=== PATIENT | female | born 1945 | race Caucasian/White ===

== ENCOUNTER 2017-06-16 22:15 | Emergency (ER) | payer MEDICARE, OTHER ==
[~2017-06-16] VITALS: Ht 167.6 cm; Wt 71.7 kg
[2017-06-16] MEDS: ONDANSETRON PF 4 MG/2 ML VIAL. IV ONE (22:59)
[2017-06-16] MEDS: KETOROLAC 30 MG/ML VIAL. IV ONE (22:59)
[2017-06-16 23:02] LABS: BASO # 0.1 x10^3/uL (0.0-0.2); BASO % 1 % (0-3); EOS # 0.8 x10^3/uL (0.0-0.7); EOS % 5 % (0-3); HEMATOCRIT 37.6 % (36.0-47.0); HEMOGLOBIN 12.1 g/dL (12.0-15.5); LYMPH # 2.1 x10^3/uL (1.0-4.8); LYMPH % 14 % (24-48); MEAN CORPUSCULAR HEMOGLOBIN 29 pg (25-35); MEAN CORPUSCULAR HGB CONC 32 g/dL (31-37); MEAN CORPUSCULAR VOLUME 88 fL (79-100); MONO # 0.8 x10^3/uL (0.0-1.1); MONO % 5 % (0-9); NEUT % 75 % (31-73); PLATELET COUNT 287 x10^3/uL (140-400); RED BLOOD COUNT 4.25 x10^6/uL (3.50-5.40); RED CELL DISTRIBUTION WIDTH 14.7 % (11.5-14.5); WHITE BLOOD COUNT 14.8 x10^3/uL (4.0-11.0)
[2017-06-16 23:16] LABS: ALBUMIN 3.9 g/dL (3.4-5.0); CALCIUM 9.4 mg/dL (8.5-10.1); CREATININE 0.9 mg/dL (0.6-1.0); GFR 61.7; TOTAL BILIRUBIN 0.2 mg/dL (0.2-1.0); TOTAL PROTEIN 7.7 g/dL (6.4-8.2)
--- NOTE | 2017-06-16 23:19 | RAD ---
PQRS Compliance Statement: One or more of the following individualized dose reduction techniques were utilized for this examination: 1. Automated exposure control 2. Adjustment of the mA and/or kV according to patient size 3. Use of iterative reconstruction technique CT ABDOMEN PELVIS WO CONTRAST Clinical Indication: [id number] Severe right sided anterior and flank abdomen pain with nausea. Hx: Cholecystectomy, kidney stones. Comparison: None. Technique: Helical CT imaging of the abdomen and pelvis is performed without IV or oral contrast. Findings: Evaluation of solid organs and bowel is limited without oral and IV contrast, decreasing sensitivity for detection of pathology. Minimal atelectasis in the lung bases. Cardiac size normal. Cholecystectomy. Small right hepatic cyst. Spleen, pancreas, and right adrenal gland are normal. Atherosclerotic abdominal aorta, mild. No aneurysm. There is a 2.6 cm left adrenal nodule. Attenuation measures 3 Hounsfield units. There are at least 3 sub-5 mm nonobstructing left renal calculi. There is no left hydronephrosis. There are at least 3 tiny nonobstructing right renal calculi. There is moderate right hydronephrosis secondary to a 5 mm calculus at the ureteropelvic junction, image 52. The more distal right ureter is normal. Stomach unremarkable. No dilated small bowel. Moderate sigmoid colon diverticulosis. There is no colon wall thickening. The appendix is normal. Stool mildly distends the cecum. Transverse colon is not well distended accentuating the wall thickness. No abdominal adenopathy or free fluid. There is mild perivesical induration. Borderline thickening of the urinary bladder wall. Uterus surgically absent. There is minimal right convexity thoracolumbar scoliosis. No acute bone abnormality. IMPRESSION: 1. Moderate right obstructive uropathy secondary to a 5 mm calculus at the ureteropelvic junction. 2. Tiny bilateral nonobstructing renal calculi. 3. Left adrenal adenoma. 4. Moderate distal colon diverticulosis without diverticulitis. 5. Mild perivesical induration and borderline urinary bladder wall thickening. Suggest correlation with urinalysis to exclude cystitis. Electronically signed by: Frandy House MD (06/16/2017 11:15 PM) [facility]
[2017-06-16 23:24] LABS: BACTERIA,URINE FEW /HPF (0-FEW); BILIRUBIN,URINE NEG (NEG); CLARITY,URINE HAZY; COLOR,URINE YELLOW; GLUCOSE,URINE NEG (NEG); NITRITE,URINE NEG (NEG); RBC,URINE 20-40 /HPF (0-2); SQUAMOUS EPITHELIAL CELL,UR FEW /LPF; UROBILINOGEN,URINE 0.2 mg/dL (0.2 mg/dL)
[2017-06-17] VITALS: BP 150/74
[2017-06-17] MEDS ORDERED: TAMS0.4C97 PO (00:16)
[2017-06-17] MEDS ORDERED: HYDR-971 PO (00:16)
--- NOTE | 2017-06-17 00:16 | PHYS DOC ---
Adult General Chief Complaint Chief Complaint: FLANK PAIN HPI HPI 71-year-old female with a history of kidney stones now with sudden onset of right flank pain while she was in the shower. Patient thinks she has another kidney stone. She had no prodromal symptoms. Denies urinary symptoms. No fevers chills sweats or shaking chills. Denies abdominal pain Review of Systems Review of Systems Constitutional: Denies fever or chills [] Eyes: Denies change in visual acuity, redness, or eye pain [] HENT: Denies nasal congestion or sore throat [] Respiratory: Denies cough or shortness of breath [] Cardiovascular: No additional information not addressed in HPI [] GI: Denies abdominal pain, nausea, vomiting, bloody stools or diarrhea [] : Denies dysuria or hematuria [] Musculoskeletal: Denies back pain or joint pain [] Integument: Denies rash or skin lesions [] Neurologic: Denies headache, focal weakness or sensory changes [] Endocrine: Denies polyuria or polydipsia [] All other systems were reviewed and found to be within normal limits, except as documented in this note. Current Medications Current Medications Current Medications Medications (Trade) Dose Ordered Sig/Irving Start Time Stop Time Status Last Admin Dose Admin Ketorolac Tromethamine (Toradol) 30 mg 1X ONCE 06/16/17 23:00 06/16/17 23:01 DC 06/16/17 22:59 30 MG Ondansetron HCl (Zofran) 4 mg 1X ONCE 06/16/17 23:00 06/16/17 23:01 DC 06/16/17 22:59 4 MG Tamsulosin HCl (Flomax) 0.4 mg 1X ONCE 06/17/17 00:00 06/17/17 00:01 DC Allergies Allergies Allergies Coded Allergies Type Severity Reaction Last Updated Verified Iodinated Contrast- Oral and IV Dye Allergy Intermediate 06/16/17 Yes Physical Exam Physical Exam Constitutional: Well developed, well nourished, no acute distress, non-toxic appearance. [] HENT: Normocephalic, atraumatic, bilateral external ears normal, oropharynx moist, no oral exudates, nose normal. [] Eyes: PERRLA, EOMI, conjunctiva normal, no discharge. [] Neck: Normal range of motion, no tenderness, supple, no stridor. [] Cardiovascular:Heart rate regular rhythm, no murmur [] Lungs & Thorax: Bilateral breath sounds clear to auscultation [] Abdomen: Bowel sounds normal, soft, no tenderness, no masses, no pulsatile masses. [] Skin: Warm, dry, no erythema, no rash. [] Back: CVA tenderness r Extremities: No tenderness, no cyanosis, no clubbing, ROM intact, no edema. [] Neurologic: Alert and oriented X 3, normal motor function, normal sensory function, no focal deficits noted. [] Psychologic: Affect normal, judgement normal, mood normal. [] Current Patient Data Lab Results Laboratory Tests Test 06/16/17 22:30 06/16/17 22:45 Urine Collection Type Unknown Urine Color Yellow Urine Clarity Hazy Urine pH 5.0 Urine Specific Clyde >=1.030 Urine Protein Trace (NEG-TRACE) Urine Glucose (UA) Neg mg/dL (NEG) Urine Ketones (Stick) Neg mg/dL (NEG) Urine Blood Large (NEG) Urine Nitrite Neg (NEG) Urine Bilirubin Neg (NEG) Urine Urobilinogen Dipstick 0.2 mg/dL (0.2 mg/dL) Urine Leukocyte Esterase Small (NEG) Urine RBC 20-40 /HPF (0-2) Urine WBC 1-4 /HPF (0-4) Urine Squamous Epithelial Cells Few /LPF Urine Bacteria Few /HPF (0-FEW) White Blood Count 14.8 x10^3/uL (4.0-11.0) H Red Blood Count 4.25 x10^6/uL (3.50-5.40) Hemoglobin 12.1 g/dL (12.0-15.5) Hematocrit 37.6 % (36.0-47.0) Mean Corpuscular Volume 88 fL (79-100) Mean Corpuscular Hemoglobin 29 pg (25-35) Mean Corpuscular Hemoglobin Concent 32 g/dL (31-37) Red Cell Distribution Width 14.7 % (11.5-14.5) H Platelet Count 287 x10^3/uL (140-400) Neutrophils (%) (Auto) 75 % (31-73) H Lymphocytes (%) (Auto) 14 % (24-48) L Monocytes (%) (Auto) 5 % (0-9) Eosinophils (%) (Auto) 5 % (0-3) H Basophils (%) (Auto) 1 % (0-3) Neutrophils # (Auto) 11.0 x10^3uL (1.8-7.7) H Lymphocytes # (Auto) 2.1 x10^3/uL (1.0-4.8) Monocytes # (Auto) 0.8 x10^3/uL (0.0-1.1) Eosinophils # (Auto) 0.8 x10^3/uL (0.0-0.7) H Basophils # (Auto) 0.1 x10^3/uL (0.0-0.2) Sodium Level 141 mmol/L (136-145) Potassium Level 4.0 mmol/L (3.5-5.1) Chloride Level 105 mmol/L (98-107) Carbon Dioxide Level 25 mmol/L (21-32) Anion Gap 11 (6-14) Blood Urea Nitrogen 19 mg/dL (7-20) Creatinine 0.9 mg/dL (0.6-1.0) Estimated GFR (Cockcroft-Gault) 61.7 BUN/Creatinine Ratio 21 (6-20) H Glucose Level 120 mg/dL (70-99) H Calcium Level 9.4 mg/dL (8.5-10.1) Total Bilirubin 0.2 mg/dL (0.2-1.0) Aspartate Amino Transferase (AST) 22 U/L (15-37) Alanine Aminotransferase (ALT) 39 U/L (14-59) Alkaline Phosphatase 94 U/L (46-116) Total Protein 7.7 g/dL (6.4-8.2) Albumin 3.9 g/dL (3.4-5.0) Albumin/Globulin Ratio 1.0 (1.0-1.7) Lipase 127 U/L (73-393) EKG EKG [] Radiology/Procedures Radiology/Procedures [] Course & Med Decision Making Course & Med Decision Making Pertinent Labs and Imaging studies reviewed. (See chart for details) Signs and symptoms consistent with ureteral colic confirmed by CT. Patient stable pain controlled. She has a urologist. Patient would like to follow up as an outpatient and feels comfortable doing so. Strict return precautions given [] Dragon Disclaimer Dragon Disclaimer This electronic medical record was generated, in whole or in part, using a voice recognition dictation system. Departure Departure: Impression: Primary Impression: Ureterolithiasis Additional Impressions: Ureteral colic Right flank pain Disposition: 01 HOME, SELF-CARE Condition: GOOD Referrals: OWEN LLAMAS MD (PCP) Patient Instructions: Ureteral Colic Additional Instructions: You have a 5 mm stone on the right side at the junction of your right kidney collecting system and your right ureter. This is called the ureteropelvic junction. You been given a dose of Flomax tonight. Continue this prescription once a day as directed. Take ibuprofen 800 mg every 6 hours if you're having any pain and then tonight take one Tylenol 3 every 4-6 hours as needed for persistent pain. Follow-up with your doctor in 1-2 days for reevaluation and referral to urology as needed if your symptoms persist. Return immediately for new severe or worsening symptoms specifically for worsening pain specially in the setting of fevers and worsening generalized signs of illness. Scripts Hydrocodone Bit/Acetaminophen (NORCO 5-325 TABLET) 1 Each Tablet 1 TAB PO PRN Q6HRS Y for PAIN, #16 TAB 0 Refills Prov: GIULIA LEVY MD 06/17/17 Tamsulosin Hcl (FLOMAX) 0.4 Mg Cap.er.24h 0.4 MG PO DAILY for 10 Days, #10 CAP.SR Prov: GIULIA LEVY MD 06/17/17 Problem Qualifiers GIULIA LEVY MD Jun 17, 2017 00:16
[2017-06-17] MEDS: ACETAMINOPHEN/CODEINE 300/30MG 4TABLET STARTPACK. PO ONE (00:29)
[2017-06-17] MEDS: TAMSULOSIN 0.4 MG CAP.ER.24H. PO ONE (00:29)
== END 2017-06-17 00:28 | disposition home or self-care (01) ==
LOC: ER 22:15
DX: N20.2 Calculus of kidney with calculus of ureter (principal); Z87.442 Personal history of urinary calculi
CPT/HCPCS: 36415; 74176; 80053; 81001; 83690; 85025; 96374; 96375; 99285; J1885; J2405